=== PATIENT | male | born 1940 ===

== ENCOUNTER 2017-11-19 15:29 | Inpatient (IN) | payer MEDICARE, BC ==
[2017-11-19 16:59] LABS: #Lymphocytes 1.7 thou/uL (1.20-3.40); #Monocytes 0.8 thou/uL (0.11-0.59); #Neutrophils 6.1 thou/uL (1.40-6.50); %Basophils 0.4 % (0.0-1.0); %Eosinophils 0.1 % (0.0-10.0); %Lymphocytes 19.8 % (21.0-51.0); %Monocytes 9.3 % (0.0-10.0); %Neutrophils 70.5 % (42.0-75.0); Hemoglobin 9.5 g/dL (14.0-18.0); Mean Corpuscular HGB CONC 34.3 g/dL (32.0-36.0); Mean Corpuscular Hemoglobin 30.8 pg (27.0-31.0); Mean Corpuscular Volume 89.7 fl (80.0-94.0); Mean Platelet Volume 6.6 fL (7.4-10.4); Platelet Count 286 thou/uL (130-400); White Blood Cell (WBC) Count 8.7 thou/uL (4.8-10.8)
[2017-11-19 17:04] LABS: INR-International Normal Ratio 1.2; PTT 28.1 SEC (22.9-36.1); Prothrombin Time 15.4 SEC (12.0-14.7)
[2017-11-19 17:21] LABS: ALT (SGPT) 7 U/L (8-55); AST (SGOT) 12 U/L (5-34); Albumin 3.6 g/dL (3.4-4.8); Alkaline Phosphatase 50 U/L (40-150); Anion Gap 12 mmol/L (10-20); BUN (Urea Nitrogen) 44 mg/dL (8.4-25.7); Bilirubin, Total 0.4 mg/dL (0.2-1.2); Calc. Creatinine Clearance 0 mL/min (70-130); Carbon Dioxide 23 mmol/L (23-31); Chloride 105 mmol/L (98-107); Estimated GFR-MDRD 61; Globulin 3.1 g/dL (2.4-3.5); Glucose 158 mg/dL (83-110); Potassium 4.5 mmol/L (3.5-5.1); Protein, Total 6.7 g/dL (5.8-8.1); Sodium 135 mmol/L (136-145)
[2017-11-19 17:57] LABS: Bilirubin Negative (Negative); Blood, Urine Negative (Negative); Clarity CLEAR (Clear); Glucose, Urine (Dipstick) 100 mg/dL (Negative); Leukocyte Negative (Negative); Nitrite Negative (Negative); Protein, Urine (Dipstick) Negative (Neg-Trace); Specific Gravity, Urine 1.022 (1.002-1.036); Urobilinogen 0.2 mg/dL (0.2-1.0)
[2017-11-19] MEDS ORDERED: Pantoprazole 40 MG VIAL ONE (17:58)
[2017-11-19] MEDS ORDERED: Mag-Al 1200 mg/1200 mg/30 ML UDCUP PO PRN (22:51)
[2017-11-19] MEDS ORDERED: Calcium Carbonate 500 MG ChewTAB PO PRN (22:51)
[2017-11-19] MEDS ORDERED: Dextrose 50% Abboject 50 ML SYRINGE SLOW IVP PRN (22:51)
[2017-11-19] MEDS ORDERED: Dextrose 5% in Water 1,000 ML IV PRN (22:51)
[2017-11-19] MEDS ORDERED: Acetaminophen 650 MG Suppository PR PRN (22:51)
[2017-11-19] MEDS ORDERED: Acetaminophen 325 MG TAB PO PRN (22:51)
[2017-11-19] MEDS ORDERED: Insulin Regular 300 UNITS/3 ML VIAL SC PRN ×2 (22:51)
[2017-11-19 23:22] LABS: Hemoglobin 9.1 g/dL (14.0-18.0)
[2017-11-19] MEDS: Sodium Chloride 0.9% 1,000 ML IV SCH (23:40)
[2017-11-19] MEDS ORDERED: traMADol HCl 50 MG TAB PO PRN (23:50)
--- NOTE | 2017-11-20 01:28 | HP ---
DATE OF ADMISSION: 11/19/2017 The patient was seen and examined on 11/19/2017 PRIMARY CARE PHYSICIAN: Dr. Wiley at [place]. CHIEF COMPLAINT: Nausea, vomiting with dark stool of 1 day duration. HISTORY OF PRESENT ILLNESS: The patient is a 77-year-old male with diabetes mellitus, type 2; and Al zheimer dementia; presented to the emergency room at [place] with above complaints. The patient is a poor historian. The history obtained from the family at the bedside. Over the last 24 hours, the patient has on and off nausea, vomiting, and dark stool. His vomitus was somewhat dark as well. At this time, the patient appears comfortable and denies any abdominal disco mfort. No fever, chills, lightheadedness, dizziness, chest pain, syncope reported. The patient does not take any nonsteroidal anti-inflammatory drugs on the routine basis except for a low dose aspirin . He took one ibuprofen last week for headache. There is no history of EGD, colonoscopy or GI bleed ing in the past. PAST MEDICAL HISTORY: 1. Alzheimer's dementia. 2. Diabetes mellitus, type 2. 3. History of Hodgkin's lymphoma, completed chemotherapy in the past. PAST SURGICAL HISTORY: MediPort placement. ALLERGIES: The patient is allergic to PENICILLIN. CURRENT HOME MEDICATIONS: Aricept 10 mg at bedtime, Lexapro 20 mg at bedtime, levothyroxine 25 mcg d aily, metformin 500 mg twice a day, tramadol as needed. SOCIAL HISTORY: The patient currently lives at home with his spouse. Spouse is the DPOA. He is FUL L CODE. He has a history of heavy alcohol abuse in the remote past. No alcohol over the last 20 yea rs or so. He ambulates with the help of a walker. He also has a wheelchair. FAMILY HISTORY: Positive for diabetes. REVIEW OF SYSTEMS: Cannot be reliably obtained from the patient due to current cognitive status/charlie ntia. PHYSICAL EXAMINATION: VITAL SIGNS: In the emergency room showed temperature 97.8, respirations 20, pulse 98, blood pressur e 127/71 with O2 saturation of 100% on 1 liter nasal cannula. GENERAL: A 77-year-old male, in no apparent distress. HEENT: Head is atraumatic, normocephalic. Sclerae are anicteric. Moist mucous membranes. No oral lesion. NECK: Supple, no JVD appreciated. No carotid bruit. LUNGS: Clear to auscultation bilaterally, no wheezing, rales or rhonchi. HEART: S1, S2 present. Regular rate and rhythm. No murmur, rubs, or gallops appreciated. ABDOMEN: Soft, nontender, bowel sounds present, no rebound, guarding, no costovertebral angle tender ness. EXTREMITIES: No edema or calf tenderness. NEUROLOGIC: Grossly nonfocal, moves all four extremities. PSYCHIATRY: The patient is alert and awake. Poor historian. SKIN: Warm and dry. LYMPH NODES: No palpable lymph nodes in the neck. PERIPHERAL VASCULAR: Radial pulses palpable bilaterally. MUSCULOSKELETAL: No joint swelling or tenderness. LABORATORY FINDINGS: 1. CBC showed WBC 9.0 with hemoglobin 9.6. Repeat hemoglobin was 9.1. Platelet count 284. 2. INR 1.2 with PT 15.4. 3. Creatinine was 1.47 with BUN 58. 4. Magnesium 1.4. 5. Urinalysis was negative for wbc bacteria. 6. Stool for occult blood was positive. 7. Telemetry monitoring by my review showed sinus rhythm. IMPRESSION: 1. Gastrointestinal bleeding, suspected secondary to peptic ulcer disease. 2. Diabetes mellitus, type 2. 3. Alzheimer's dementia. 4. Acute kidney injury on chronic kidney disease, stage 2. 5. Hyponatremia, mild, with sodium 135. 6. Hypomagnesemia. 7. Anemia secondary to acute gastrointestinal blood loss. 8. PENICILLIN allergy. 9. History of Hodgkin's lymphoma in the past. 10. History of heavy alcohol abuse in the past. 11. Physical deconditioning. 12. Hypothyroidism. PLAN: The patient will be monitored on the telemetry unit as 23-hour observation. GI will be consul alvaro. We will check iron profile in a.m. We will resume all of his home medications except metformin . The patient will be kept n.p.o. IV fluids. GI consult. We will resume selected home medications . Fall precautions. Plan of care was discussed with the family in detail. They stated understanding.
[2017-11-20] MEDS: Pantoprazole 80 MG, Admixture Fee 1 EACH in Sodium Chloride 0.9% 100 ML IVP SCH (05:30)
[2017-11-20] MEDS: Sodium Chloride 0.9% 1,000 ML IV SCH ×4 (05:30→22:14)
[2017-11-20 05:54] LABS: Hemoglobin 8.4 g/dL (14.0-18.0); Platelet Count 255 thou/uL (130-400)
[2017-11-20 06:07] LABS: Anion Gap 12 mmol/L (10-20); BUN (Urea Nitrogen) 33 mg/dL (8.4-25.7); Calc. Creatinine Clearance 49 mL/min (70-130); Calcium 8.5 mg/dL (7.8-10.44); Carbon Dioxide 24 mmol/L (23-31); Chloride 108 mmol/L (98-107); Estimated GFR-MDRD 62; Glucose 135 mg/dL (83-110); Iron 93 ug/dL (65-175); Iron Binding Capacity, Total 260 mcg/dL (261-462); Magnesium 1.7 mg/dL (1.6-2.6); Potassium 4.4 mmol/L (3.5-5.1); Sodium 140 mmol/L (136-145)
[2017-11-20] MEDS: Levothyroxine Sodium 25 MCG TAB PO SCH (07:00)
[2017-11-20] MEDS ORDERED: Prevnar 13-Val Conj/PF 0.5 ML SYRINGE IM ONE (09:00)
[2017-11-20] MEDS ORDERED: Lidocaine 1% PF 5 ML VIAL ONE (09:42)
[2017-11-20] MEDS ORDERED: PROPOFOL 200 MG/20 ML VIAL ONE (09:42)
[2017-11-20 11:11] LABS: Hemoglobin 7.2 g/dL (14.0-18.0)
--- NOTE | 2017-11-20 13:18 | PDOC.PN ---
- Subjective Encounter Start Date: 11/20/17 Encounter Start Time: 13:15 Patient seen and examined for Anemia/GI bleeding. Had Melena earlier per RN. No new complaints. No overnight events - Objective MAR Reviewed: Yes Vital Signs & Weight: Vital Signs (12 hours) Temp Pulse Resp BP Pulse Ox 11/20/17 12:00 98.3 F 71 20 108/56 L 95 11/20/17 08:00 98.1 F 70 16 120/60 99 Result Diagrams: 11/20/17 10:52 11/20/17 05:37 Additional Labs: Accuchecks 11/20/17 11/20/17 12:14 08:03 POC Glucose 127 H 133 H EKG Reviewed by me: Yes (Tele SR) Phys Exam - Physical Examination Constitutional: NAD Neck: no JVD Respiratory: no wheezing, no rales, no rhonchi symmetrical Cardiovascular: RRR, no rub no heaves/pulsations Gastrointestinal: soft, non-tender, no distention, positive bowel sounds Musculoskeletal: no edema Neurological: non-focal, normal sensation, moves all 4 limbs Dx/Plan (1) GI bleed Code(s): K92.2 - GASTROINTESTINAL HEMORRHAGE, UNSPECIFIED Status: Acute (2) Anemia associated with acute blood loss Code(s): D62 - ACUTE POSTHEMORRHAGIC ANEMIA Status: Acute (3) DM2 (diabetes mellitus, type 2) Status: Chronic Qualifiers: Chronic kidney disease stage: stage 2 (mild) (4) MARY (acute kidney injury) Code(s): N17.9 - ACUTE KIDNEY FAILURE, UNSPECIFIED Status: Acute (5) Other chronic problems Status: Chronic Comment: - Alzheimer's dementia. - Hyponatremia, mild, with sodium 135. - Hypomagnesemia. - PENICILLIN allergy. - History of Hodgkin's lymphoma in the past. - History of heavy alcohol abuse in the past. - Physical deconditioning. - Hypothyroidism. - Plan DVT proph w/SCDs Transfuse 1 unit PRBC, HH at 1800 -: EGD today -: Reduce IVF to 125 ml/hr -: Cont current meds as below Review of Systems - Review of Systems Respiratory: negative: Cough, Dry, Shortness of Breath, Hemoptysis, SOB with Excertion, Pleuritic Pain, Sputum, Wheezing Cardiovascular: negative: chest pain, palpitations, orthopnea, paroxysmal nocturnal dyspnea, edema, light headedness, other Gastrointestinal: negative: Nausea, Vomiting, Abdominal Pain, Diarrhea, Constipation, Melena, Hematochezia, Other - Medications/Allergies Allergies/Adverse Reactions: Allergies Allergy/AdvReac Type Severity Reaction Status Date / Time Penicillins Allergy Verified 11/20/17 02:18 Medications: Current Medications Acetaminophen (Tylenol) 650 mg PO Q4H PRN PRN Reason: Headache/Fever or Pain Acetaminophen (Tylenol) 650 mg UT Q4H PRN PRN Reason: Headache/Fever or Pain Al Hydroxide/Mg Hydroxide (Maalox) 30 ml PO Q6H PRN PRN Reason: Heartburn or Indigestion Calcium Carbonate (Tums) 1,000 mg PO Q4H PRN PRN Reason: Heartburn or Indigestion Dextrose/Water (Dextrose 50%) 25 gm SLOW IVP PRN PRN PRN Reason: Hypoglycemia Donepezil HCl (Aricept) 10 mg PO HS BERNARDA Escitalopram Oxalate (Lexapro) 20 mg PO HS BERNARDA Glucagon (Glucagon) 1 mg IM PRN PRN PRN Reason: Hypoglycemia Pantoprazole Sodium 80 mg/Miscellaneous Medication 1 each/ Sodium Chloride 100 mls @ 10 mls/hr IVP INF [facility] Last Admin: 11/20/17 05:30 Dose: 100 mls Sodium Chloride (Normal Saline 0.9%) 1,000 mls @ 150 mls/hr IV .Q6H40M [facility] Last Admin: 11/20/17 11:09 Dose: Not Given Dextrose/Water (D5w) 1,000 mls @ 0 mls/hr IV .Q0M PRN; As Directed PRN Reason: Hypoglycemia Insulin Human Regular (Humulin R) 0 units SC .MILD SLIDING SCALE PRN PRN Reason: Mild Correctional Scale Insulin Human Regular (Humulin R) 0 units SC .BEDTIME SLIDING SC PRN PRN Reason: Bedtime Correctional Scale Levothyroxine Sodium (Synthroid) 25 mcg PO 0600 [facility] Last Admin: 11/20/17 07:00 Dose: Not Given Sodium Chloride (Flush - Normal Saline) 10 ml IVF Q12HR [facility] Last Admin: 11/20/17 11:02 Dose: 10 ml Sodium Chloride (Flush - Normal Saline) 10 ml IVF PRN PRN PRN Reason: Saline Flush Tramadol HCl (Ultram) 50 mg PO TID PRN PRN Reason: Pain
--- NOTE | 2017-11-20 18:18 | OP ---
DATE OF PROCEDURE: 11/20/2017 OPERATIVE PROCEDURE: Esophagogastroduodenoscopy with biopsy. PREOPERATIVE DIAGNOSES: Nausea and vomiting, black tarry stool and no history of coffee-ground vomit ing. POSTOPERATIVE DIAGNOSES: 1. Large hiatus hernia. 2. Ulcer in the gastroesophageal junction with esophagitis. 3. Ulceration of this area was biopsied. 4. Ulcer in the incisural angularis, nonbleeding. 5. Large and deep ulceration in the duodenal bulb without any active bleeding. 6. Duodenitis. PROCEDURE NOTE: The patient was placed on his left lateral position after [facility] A Pentax video gastroscope under direct vision was passed down the oropharynx to the GE junction, into the stomach and subsequently into descending duodenum. At the time of endosco py, stomach was completely free of any blood or any coffee-ground material. The patient had ulcerati on with some varices over this area, over the mid esophagus, this was biopsied. At the GE junction, the patient had another ulceration with esophagitis. He has a large hiatal hernia. The fundus and c ardia, no pathology. The gastric body, no pathology. The gastric antral had an ulceration over the incisura. It was nonbleeding. The duodenal bulb showed a very large and deep ulceration. I do not see any visible vessel or bleeding. The mucosa also was edematous and erythematous indicative of duo denitis. The descending duodenum, no pathology. Biopsies obtained of the gastric antrum and gastric body. The stomach was decompressed and the scope removed. RECOMMENDATIONS: 1. Continue PPI. 2. Diet as tolerated. 3. Follow up H and H. I would also recommend not to give any aspirin or any NSAID medication.
[2017-11-20 18:27] LABS: Hemoglobin 8.9 g/dL (14.0-18.0)
[2017-11-20] MEDS: Donepezil HCl 10 MG TAB PO SCH (22:11)
[2017-11-20] MEDS: Escitalopram Oxalate 20 mg Tablet PO SCH (22:12)
--- NOTE | 2017-11-21 02:04 | CON ---
DATE OF CONSULTATION: 11/20/2017 REFERRING PHYSICIAN: Santosh Salinas MD REASON FOR CONSULTATION: 1. Nausea and vomiting, and vomiting coffee-ground material. 2. Also has black tarry stool. HISTORY OF PRESENT ILLNESS: Mr. Yao Arevalo is a 77-year-old Latin-Pry[place]in[place] male whose regular [facility] doctor is Dr. Wiley in [place]. He also sees his clinical business manager and an oncologist in [facility]. The patient has history of Hodgkin's lymphoma, status post liver chemotherapy and has been in remission for the last five years. He does see Dr. Jj at [place] every 6 months. The pa silvina has history of Alzheimer dementia and diabetes mellitus. The history was basically obtained fr om talking to the patient's . Since admission to the hospital, the patient has had no nausea or vomiting. The patient denies abdominal pain. He is awake, alert, and communicative, but most of the history was obtained by talking to the patient's . He denies any vomiting today, but he says he vomited the other day. The patient has no heartburn, indigestion. No dysphagia. His tells me he had EGD done several years ago, but really does not know exactly what was found. The patient's b owel movements are fairly regular. There is no prior history of any hematochezia or any melena. No prior history of any . He does not take any aspirin except for low-dose aspirin once a day. H e does not take NSAID medication or blood thinners. No relevant history. ALLERGIES: PENICILLIN. SOCIAL HISTORY: The patient is . He has history of alcohol abuse in the past and also has hi story of smoking in the past. He has quit smoking more than 20 years ago. He walks with a walker. MEDICAL ILLNESSES: 1. Alzheimer dementia. 2. Type 2 diabetes. 3. History of Hodgkin's lymphoma, status post chemotherapy, in remission. FAMILY HISTORY: Diabetes mellitus. REVIEW OF SYSTEMS: Unremarkable. Anyway, he is not a good historian and he denies any chest pain, d ifficulty breathing, abdominal pain, palpitations. PHYSICAL EXAMINATION: GENERAL: He appears very comfortable. He is awake and communicative, but he is not a good historian . VITAL SIGNS: His pulse is 90, blood pressure is 120/80. HEENT: Conjunctivae clear. NECK: Supple. No adenitis or thyromegaly noted. CARDIOVASCULAR: First and second heart sounds normal. LUNGS: Clear to auscultation. ABDOMEN: Soft to palpate. Abdomen is nondistended. Abdomen is nontender. There is no organomegaly or masses. Bowel sounds normal. EXTREMITIES: No edema. Symptoms are grossly within normal limits. LABORATORY DATA: WBC 9000, hemoglobin 9.6, hematocrit 27.8. He has had serial H&H since admission. It was drifting slowly to 9.1 to 8.4 to 7.2 today. Hematocrit 20.9 today. MCV 10.7, platelet count is 286,000, polymorphs 70, lymphocytes 19. Serum chemistries, sodium 135, potassium 4.5, chloride 1 05, bicarbonate 23, BUN is 44, creatinine 1.17, glucose 158, calcium 9, bilirubin 0.4, AST 12, ALT 7, alkaline phosphatase 50. CLINICAL IMPRESSION: 1. A 77-year-old Latin-Prydeinig male with nausea, vomiting, and history of vomiting coffee-ground ma terial and having black tarry stool. The patient has no abdominal pain. No nausea or vomiting. No prior history of ulcer disease. 2. Anemia due to blood loss. 3. Elevated BUN and creatinine mostly represent upper gastrointestinal bleeding with reabsorption of blood with BUN going up. 4. Alzheimer dementia. 5. Diabetes mellitus. 6. History of Hodgkin's lymphoma, in remission. PLAN: 1. Transfuse. 2. IV PPI. 3. EGD later on today. I will make further recommendations after EGD.
[2017-11-21] MEDS: Sodium Chloride 0.9% 1,000 ML IV SCH ×3 (05:18→16:47)
[2017-11-21] MEDS: Levothyroxine Sodium 25 MCG TAB PO SCH (05:18)
[2017-11-21 08:16] VITALS: BMI 23.4
[2017-11-21 09:06] LABS: #Eosinphils 0.1 thou/uL (0.0-0.7); #Lymphocytes 1.5 thou/uL (1.20-3.40); #Monocytes 0.5 thou/uL (0.11-0.59); #Neutrophils 3.1 thou/uL (1.40-6.50); %Basophils 0.9 % (0.0-1.0); %Monocytes 10.4 % (0.0-10.0); %Neutrophils 58.7 % (42.0-75.0); Mean Corpuscular HGB CONC 34.4 g/dL (32.0-36.0); Mean Corpuscular Hemoglobin 31.3 pg (27.0-31.0); Mean Platelet Volume 6.8 fL (7.4-10.4); Platelet Count 194 thou/uL (130-400); RBC Distribution Width 11.9 % (11.5-14.5); Red Blood Cell (RBC) Count 2.55 mill/uL (4.70-6.10); White Blood Cell (WBC) Count 5.2 thou/uL (4.8-10.8)
[2017-11-21 09:22] LABS: Anion Gap 9 mmol/L (10-20); BUN (Urea Nitrogen) 13 mg/dL (8.4-25.7); Calc. Creatinine Clearance 58 mL/min (70-130); Calcium 7.7 mg/dL (7.8-10.44); Carbon Dioxide 22 mmol/L (23-31); Chloride 111 mmol/L (98-107); Estimated GFR-MDRD 74; Glucose 123 mg/dL (83-110); Potassium 3.9 mmol/L (3.5-5.1); Sodium 138 mmol/L (136-145)
[2017-11-21] MEDS: Pantoprazole 80 MG, Admixture Fee 1 EACH in Sodium Chloride 0.9% 100 ML IVP SCH ×2 (10:02→18:28)
--- NOTE | 2017-11-21 10:47 | PDOC.PN ---
- Subjective Encounter Start Date: 11/21/17 Encounter Start Time: 07:45 -: old records requested/rev Patient seen and examined for gi bleed. No new complaints. No overnight events pt feels weak, no more bleeding but has no BM - Objective MAR Reviewed: Yes Vital Signs & Weight: Vital Signs (12 hours) Temp Pulse Resp BP BP Pulse Ox 11/21/17 05:00 140/60 11/21/17 04:35 98.2 F 57 L 17 122/57 L 98 Weight Admit Weight 140 lb 3.2 oz Weight 140 lb 11.2 oz Most Recent Monitor Data Heart Rate from ECG 63 NIBP 111/58 I&O: 11/20/17 11/21/17 11/22/17 06:59 06:59 06:59 Intake Total 1862 Output Total 200 Balance 1662 Result Diagrams: 11/21/17 08:40 11/21/17 08:40 Additional Labs: Accuchecks 11/21/17 11/21/17 11/21/17 08:02 06:54 00:48 POC Glucose 133 H 115 H 119 H 11/20/17 11/20/17 16:45 12:14 POC Glucose 122 H 127 H EKG Reviewed by me: Yes (nsr) Phys Exam - Physical Examination Constitutional: NAD HEENT: PERRLA, moist MMs, sclera anicteric Neck: no JVD, supple Respiratory: no wheezing, no rales, no rhonchi Cardiovascular: RRR, no significant murmur, no rub Gastrointestinal: soft, non-tender, no distention, positive bowel sounds Musculoskeletal: no edema, pulses present Neurological: non-focal, normal sensation, moves all 4 limbs Lymphatic: no nodes Psychiatric: normal affect, A&O x 3 Skin: no rash, normal turgor Dx/Plan (1) MARY (acute kidney injury) Code(s): N17.9 - ACUTE KIDNEY FAILURE, UNSPECIFIED Status: Resolved (2) Anemia associated with acute blood loss Code(s): D62 - ACUTE POSTHEMORRHAGIC ANEMIA Status: Acute (3) Duodenitis Code(s): K29.80 - DUODENITIS WITHOUT BLEEDING Status: Acute (4) Esophagitis, erosive Code(s): K22.10 - ULCER OF ESOPHAGUS WITHOUT BLEEDING Status: Acute (5) GI bleed Code(s): K92.2 - GASTROINTESTINAL HEMORRHAGE, UNSPECIFIED Status: Acute (6) Large hiatal hernia Code(s): K44.9 - DIAPHRAGMATIC HERNIA WITHOUT OBSTRUCTION OR GANGRENE Status: Acute (7) Ulcer of gastroesophageal junction Code(s): K25.9 - GASTRIC ULCER, UNSP ACUTE OR CHRONIC, W/O HEMOR OR PERF Status: Acute (8) Alzheimer's dementia Code(s): G30.9 - ALZHEIMER'S DISEASE, UNSPECIFIED; F02.80 - DEMENTIA IN OTH DISEASES CLASSD ELSWHR W/O BEHAVRL DISTURB Status: Chronic (9) DM2 (diabetes mellitus, type 2) Status: Chronic Qualifiers: Chronic kidney disease stage: stage 2 (mild) (10) H/O Hodgkin's lymphoma Code(s): Z85.71 - PERSONAL HISTORY OF HODGKIN LYMPHOMA Status: Chronic (11) Hypothyroidism Code(s): E03.9 - HYPOTHYROIDISM, UNSPECIFIED Status: Chronic (12) Physical deconditioning Code(s): R53.81 - OTHER MALAISE Status: Chronic - Plan cont current plan of care, plan discussed w/ family, PT/OT * H & H stable * advance diet today * DC tele * transfer to medical * start PT * repeat labs tomorrow * discussed with GI * expecting discharge tomorrow * medication reviewed as below * symptomatic treatment * evaluate for SNU based on PT * discussed with daughter bedside. Review of Systems - Review of Systems Constitutional: weakness, malaise. negative: fever, chills, sweats, other Eyes: negative: Pain, Vision Change, Conjunctivae Inflammation, Eyelid Inflammation, Redness, Other ENT: negative: Ear Pain, Ear Discharge, Nose Pain, Nose Discharge, Nose Congestion, Mouth Pain, Mouth Swelling, Throat Pain, Throat Swelling, Other Respiratory: negative: Cough, Dry, Shortness of Breath, Hemoptysis, SOB with Excertion, Pleuritic Pain, Sputum, Wheezing Cardiovascular: negative: chest pain, palpitations, orthopnea, paroxysmal nocturnal dyspnea, edema, light headedness, other Gastrointestinal: negative: Nausea, Vomiting, Abdominal Pain, Diarrhea, Constipation, Melena, Hematochezia, Other Genitourinary: negative: Dysuria, Frequency, Incontinence, Hematuria, Retention , Other Musculoskeletal: negative: Neck Pain, Shoulder Pain, Arm Pain, Back Pain, Hand Pain, Leg Pain, Foot Pain, Other Skin: negative: Rash, Lesions, Josef, Bruising, Other - Medications/Allergies Allergies/Adverse Reactions: Allergies Allergy/AdvReac Type Severity Reaction Status Date / Time Penicillins Allergy Verified 11/20/17 02:18 Medications: Current Medications Acetaminophen (Tylenol) 650 mg PO Q4H PRN PRN Reason: Headache/Fever or Pain Acetaminophen (Tylenol) 650 mg [place] Q4H PRN PRN Reason: Headache/Fever or Pain Al Hydroxide/Mg Hydroxide (Maalox) 30 ml PO Q6H PRN PRN Reason: Heartburn or Indigestion Calcium Carbonate (Tums) 1,000 mg PO Q4H PRN PRN Reason: Heartburn or Indigestion Dextrose/Water (Dextrose 50%) 25 gm SLOW IVP PRN PRN PRN Reason: Hypoglycemia Donepezil HCl (Aricept) 10 mg PO [facility] Last Admin: 11/20/17 22:11 Dose: 10 mg Escitalopram Oxalate (Lexapro) 20 mg PO [facility] Last Admin: 11/20/17 22:12 Dose: 20 mg Glucagon (Glucagon) 1 mg IM PRN PRN PRN Reason: Hypoglycemia Pantoprazole Sodium 80 mg/Miscellaneous Medication 1 each/ Sodium Chloride 100 mls @ 10 mls/hr IVP INF [facility] Last Admin: 11/21/17 10:02 Dose: 100 mls Dextrose/Water (D5w) 1,000 mls @ 0 mls/hr IV .Q0M PRN; As Directed PRN Reason: Hypoglycemia Sodium Chloride (Normal Saline 0.9%) 1,000 mls @ 70 mls/hr IV .[id number] [facility] Last Admin: 11/21/17 10:01 Dose: Not Given Insulin Human Regular (Humulin R) 0 units SC .MILD SLIDING SCALE PRN PRN Reason: Mild Correctional Scale Insulin Human Regular (Humulin R) 0 units SC .BEDTIME SLIDING SC PRN PRN Reason: Bedtime Correctional Scale Levothyroxine Sodium (Synthroid) 25 mcg PO 0600 [facility] Last Admin: 11/21/17 05:18 Dose: 25 mcg Sodium Chloride (Flush - Normal Saline) 10 ml IVF Q12HR [facility] Last Admin: 11/21/17 10:00 Dose: 10 ml Sodium Chloride (Flush - Normal Saline) 10 ml IVF PRN PRN PRN Reason: Saline Flush Tramadol HCl (Ultram) 50 mg PO TID PRN PRN Reason: Pain
--- NOTE | 2017-11-21 15:48 | PRG ---
DATE OF SERVICE: 11/21/2017 SUBJECTIVE: This is a 77-year-old Latin-[place] male hospitalized with anemia, history of black tar ry stool and vomiting coffee-ground material. Anemia on admission. Blood count did drop down to 7.2 and he got 2 units of blood. He had an EGD yesterday. The EGD showed a gastric ulcer, also in the duodenal bulb, esophageal stricture. No active bleeding seen. Through the night, he has had no naus ea or vomiting. He has had no stool. He appears comfortable. Last H&H at 6:00 p.m. yesterday 8.9, hematocrit 26.3. Today, it dropped to 8 and 23.2. OBJECTIVE: GENERAL: Appears comfortable, afebrile. Pulse is 64, blood pressure is 117/59. CARDIOVASCULAR: First and second heart sounds normal. LUNGS: Clear to auscultation. ABDOMEN: Soft to palpate. No organomegaly. No tenderness. No masses. RECOMMENDATIONS: 1. Advance diet to diabetic diet. 2. Follow up H&H. 3. Continue proton-pump inhibitor.
[2017-11-21] MEDS: Escitalopram Oxalate 20 mg Tablet PO SCH (21:42)
[2017-11-21] MEDS: Donepezil HCl 10 MG TAB PO SCH (21:42)
[2017-11-22] MEDS: Sodium Chloride 0.9% 1,000 ML IV SCH ×2 (00:35→11:17)
[2017-11-22] MEDS: Levothyroxine Sodium 25 MCG TAB PO SCH (05:18)
[2017-11-22] MEDS: Pantoprazole 80 MG, Admixture Fee 1 EACH in Sodium Chloride 0.9% 100 ML IVP SCH (05:59)
[2017-11-22 11:05] LABS: Hemoglobin 7.6 g/dL (14.0-18.0)
--- NOTE | 2017-11-22 16:51 | PRG ---
DATE OF SERVICE: 11/22/2017 GI INPATIENT DAILY PROGRESS NOTE SUBJECTIVE: Mr. Arevalo is feeling well today. He denies any abdominal pain, nausea, or vomiting. He says he had a normal appearing bowel movement earlier today. He is tolerating his diabetic diet. His hemoglobin did decline further down to 7.6 this morning from a post-transfusion value of 8.9 two days ago. BUN is only 13, down from 44. He is receiving 2 more units of blood. PHYSICAL EXAMINATION: VITAL SIGNS: Temperature 98.3, pulse 55, blood pressure 129/71, 98% oxygen saturation on room air. GENERAL: No acute distress. HEART: Regular rate and rhythm. LUNGS: Clear to auscultation bilaterally. ABDOMEN: Soft and nontender to palpation. EXTREMITIES: No peripheral edema. LABORATORY STUDIES: Sodium 138, potassium 3.9, BUN 13, creatinine 0.98, glucose 183, INR 1.2, hemogl obin 7.6, hematocrit 21.7, WBC 5.2, platelets 194. ASSESSMENT AND PLAN: 1. Gastric ulcer. 2. Duodenal ulcer. 3. Ulcer at the gastroesophageal junction. 4. Acute blood loss anemia. There has been no further overt evidence of bleeding. He has remained hemodynamically stable and marcus enic stool seemed to have resolved. Would keep him on his IV PPI for a total of 72 hours, then this can be transitioned to oral PPI twice daily moving forward. Awaiting results of gastric biopsies.
[2017-11-22] MEDS: Pantoprazole 40 MG VIAL IVP SCH (20:10)
[2017-11-22] MEDS: Donepezil HCl 10 MG TAB PO SCH (20:10)
[2017-11-22] MEDS: Escitalopram Oxalate 20 mg Tablet PO SCH (20:10)
--- NOTE | 2017-11-22 23:47 | PDOC.PN ---
- Subjective Encounter Start Date: 11/22/17 Encounter Start Time: 14:00 Patient seen and examined for GI bleeding. No new complaints. No new melena. No CP/SOB. No overnight events - Objective MAR Reviewed: Yes Vital Signs & Weight: Vital Signs (12 hours) Temp Pulse Resp BP Pulse Ox 11/22/17 21:27 99.1 F 51 L 16 148/73 H 98 Weight Admit Weight 140 lb 3.2 oz Weight 140 lb 11.2 oz Most Recent Monitor Data Heart Rate from ECG 63 NIBP 111/58 I&O: 11/21/17 11/22/17 11/23/17 06:59 06:59 06:59 Intake Total 1862 1260 6100 Output Total 200 300 Balance 9138 808 3904 Result Diagrams: 11/23/17 04:07 11/21/17 08:40 Additional Labs: Accuchecks 11/22/17 11/22/17 11/22/17 21:27 16:58 12:01 POC Glucose 154 H 145 H 183 H 11/22/17 04:52 POC Glucose 122 H Phys Exam - Physical Examination Constitutional: NAD Respiratory: no wheezing, no rhonchi Cardiovascular: RRR, no rub Gastrointestinal: soft, non-tender, positive bowel sounds Musculoskeletal: no edema Neurological: moves all 4 limbs Dx/Plan (1) GI bleed Code(s): K92.2 - GASTROINTESTINAL HEMORRHAGE, UNSPECIFIED Status: Acute Comment: s/p EGD (2) Anemia associated with acute blood loss Code(s): D62 - ACUTE POSTHEMORRHAGIC ANEMIA Status: Acute (3) DM2 (diabetes mellitus, type 2) Status: Chronic Qualifiers: Chronic kidney disease stage: stage 2 (mild) (4) MARY (acute kidney injury) Code(s): N17.9 - ACUTE KIDNEY FAILURE, UNSPECIFIED Status: Resolved (5) Other chronic problems Status: Chronic Comment: - Alzheimer's dementia. - Hyponatremia, mild, with sodium 135. - Hypomagnesemia. - PENICILLIN allergy. - History of Hodgkin's lymphoma in the past. - History of heavy alcohol abuse in the past. - Physical deconditioning. - Hypothyroidism. - Plan DVT proph w/SCDs Transfuse 1 unit PRBC -: HH in AM -: Cont IV PPI -: Cont current meds as below Review of Systems - Review of Systems Respiratory: negative: Cough, Dry, Shortness of Breath, Hemoptysis, SOB with Excertion, Pleuritic Pain, Sputum, Wheezing Cardiovascular: negative: chest pain, palpitations, orthopnea, paroxysmal nocturnal dyspnea, edema, light headedness, other - Medications/Allergies Allergies/Adverse Reactions: Allergies Allergy/AdvReac Type Severity Reaction Status Date / Time Penicillins Allergy Verified 11/20/17 02:18 Medications: Current Medications Acetaminophen (Tylenol) 650 mg PO Q4H PRN PRN Reason: Headache/Fever or Pain Acetaminophen (Tylenol) 650 mg [place] Q4H PRN PRN Reason: Headache/Fever or Pain Al Hydroxide/Mg Hydroxide (Maalox) 30 ml PO Q6H PRN PRN Reason: Heartburn or Indigestion Calcium Carbonate (Tums) 1,000 mg PO Q4H PRN PRN Reason: Heartburn or Indigestion Dextrose/Water (Dextrose 50%) 25 gm SLOW IVP PRN PRN PRN Reason: Hypoglycemia Donepezil HCl (Aricept) 10 mg PO HS [facility] Last Admin: 11/22/17 20:10 Dose: 10 mg Escitalopram Oxalate (Lexapro) 20 mg PO HS [facility] Last Admin: 11/22/17 20:10 Dose: 20 mg Glucagon (Glucagon) 1 mg IM PRN PRN PRN Reason: Hypoglycemia Dextrose/Water (D5w) 1,000 mls @ 0 mls/hr IV .Q0M PRN; As Directed PRN Reason: Hypoglycemia Insulin Human Regular (Humulin R) 0 units SC .MILD SLIDING SCALE PRN PRN Reason: Mild Correctional Scale Insulin Human Regular (Humulin R) 0 units SC .BEDTIME SLIDING SC PRN PRN Reason: Bedtime Correctional Scale Levothyroxine Sodium (Synthroid) 25 mcg PO 0600 [facility] Last Admin: 11/22/17 05:18 Dose: 25 mcg Pantoprazole Sodium (Protonix) 40 mg IVP BID [facility] Last Admin: 11/22/17 20:10 Dose: 40 mg Sodium Chloride (Flush - Normal Saline) 10 ml IVF Q12HR [facility] Last Admin: 11/22/17 20:10 Dose: 10 ml Sodium Chloride (Flush - Normal Saline) 10 ml FS BID [facility] Last Admin: 11/22/17 20:10 Dose: 10 ml Tramadol HCl (Ultram) 50 mg PO TID PRN PRN Reason: Pain
[2017-11-23 04:30] LABS: Hemoglobin 9.5 g/dL (14.0-18.0); Platelet Count 188 thou/uL (130-400)
[2017-11-23] MEDS: Levothyroxine Sodium 25 MCG TAB PO SCH (06:02)
[2017-11-23] MEDS: Pantoprazole 40 MG VIAL IVP SCH ×2 (08:57→21:11)
--- NOTE | 2017-11-23 13:56 | PRG ---
DATE OF SERVICE: 11/23/2017 SUBJECTIVE: Mr. Arevalo is feeling well. No abdominal pain or nausea. He is tolerating his diet. He says he had a bowel movement last night with no melena or hematochezia. Hemoglobin came up to 9.5 this morning after 1 unit RBC transfusion yesterday. PHYSICAL EXAMINATION: VITAL SIGNS: Temperature 98.7, pulse 51, blood pressure 114/64, 98% oxygen saturation on room air. GENERAL: No acute distress. HEART: Regular rate and rhythm. LUNGS: Clear to auscultation bilaterally. ABDOMEN: Soft and nontender to palpation. EXTREMITIES: No peripheral edema. LABORATORY STUDIES: Hemoglobin 9.5, hematocrit 26.9, platelets 188. Glucose is 142. ASSESSMENT: 1. Gastric ulcer. 2. Duodenal ulcer. 3. Ulcer at the gastroesophageal junction. 4. Acute blood loss anemia. PLAN: Still no further overt evidence of bleeding. He remains hemodynamically stable and melena see ms to have resolved. I think tomorrow he can be transitioned to oral PPI twice daily. 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 Paulo minaya, in the meantime. Gastric biopsies are still pending, but those can be followed up after hospital discharge.
[2017-11-23] MEDS: Escitalopram Oxalate 20 mg Tablet PO SCH (21:11)
[2017-11-23] MEDS: Donepezil HCl 10 MG TAB PO SCH (21:11)
--- NOTE | 2017-11-23 22:01 | PDOC.PN ---
- Subjective Encounter Start Date: 11/23/17 Encounter Start Time: 14:00 Patient seen and examined for GI bleeding. No new complaints. No new Melena. No overnight events - Objective MAR Reviewed: Yes Vital Signs & Weight: Vital Signs (12 hours) Temp Pulse Resp BP Pulse Ox 11/23/17 21:35 99.2 F 50 L 18 142/74 H 98 Weight Admit Weight 140 lb 3.2 oz Weight 140 lb 11.2 oz Most Recent Monitor Data Heart Rate from ECG 63 NIBP 111/58 I&O: 11/22/17 11/23/17 11/24/17 06:59 06:59 06:59 Intake Total 1260 6600 Output Total 300 400 Balance 960 6200 Result Diagrams: 11/24/17 05:26 11/24/17 05:26 Additional Labs: Accuchecks 11/23/17 11/23/17 11/23/17 17:08 11:08 06:18 POC Glucose 139 H 142 H 133 H Phys Exam - Physical Examination Constitutional: NAD Respiratory: no wheezing, no rhonchi Cardiovascular: RRR, no rub Gastrointestinal: soft, non-tender, no distention, positive bowel sounds Musculoskeletal: no edema Neurological: moves all 4 limbs Dx/Plan (1) GI bleed Code(s): K92.2 - GASTROINTESTINAL HEMORRHAGE, UNSPECIFIED Status: Acute Comment: s/p EGD (2) Anemia associated with acute blood loss Code(s): D62 - ACUTE POSTHEMORRHAGIC ANEMIA Status: Acute (3) DM2 (diabetes mellitus, type 2) Status: Chronic Qualifiers: Chronic kidney disease stage: stage 2 (mild) (4) MARY (acute kidney injury) Code(s): N17.9 - ACUTE KIDNEY FAILURE, UNSPECIFIED Status: Resolved (5) Other chronic problems Status: Chronic Comment: - Alzheimer's dementia. - Hyponatremia, mild, with sodium 135. - Hypomagnesemia. - PENICILLIN allergy. - History of Hodgkin's lymphoma in the past. - History of heavy alcohol abuse in the past. - Physical deconditioning. - Hypothyroidism. - Plan DVT proph w/SCDs Cont IV PPI per GI -: HH in AM -: DC in AM if HH stable -: Cont current meds as below Review of Systems - Review of Systems Respiratory: negative: Cough, Dry, Shortness of Breath, Hemoptysis, SOB with Excertion, Pleuritic Pain, Sputum, Wheezing Cardiovascular: negative: chest pain, palpitations, orthopnea, paroxysmal nocturnal dyspnea, edema, light headedness, other - Medications/Allergies Allergies/Adverse Reactions: Allergies Allergy/AdvReac Type Severity Reaction Status Date / Time Penicillins Allergy Verified 11/20/17 02:18 Medications: Current Medications Acetaminophen (Tylenol) 650 mg PO Q4H PRN PRN Reason: Headache/Fever or Pain Acetaminophen (Tylenol) 650 mg [place] Q4H PRN PRN Reason: Headache/Fever or Pain Al Hydroxide/Mg Hydroxide (Maalox) 30 ml PO Q6H PRN PRN Reason: Heartburn or Indigestion Calcium Carbonate (Tums) 1,000 mg PO Q4H PRN PRN Reason: Heartburn or Indigestion Dextrose/Water (Dextrose 50%) 25 gm SLOW IVP PRN PRN PRN Reason: Hypoglycemia Donepezil HCl (Aricept) 10 mg PO HS [facility] Last Admin: 11/23/17 21:11 Dose: 10 mg Escitalopram Oxalate (Lexapro) 20 mg PO [facility] Last Admin: 11/23/17 21:11 Dose: 20 mg Glucagon (Glucagon) 1 mg IM PRN PRN PRN Reason: Hypoglycemia Dextrose/Water (D5w) 1,000 mls @ 0 mls/hr IV .Q0M PRN; As Directed PRN Reason: Hypoglycemia Insulin Human Regular (Humulin R) 0 units SC .MILD SLIDING SCALE PRN PRN Reason: Mild Correctional Scale Insulin Human Regular (Humulin R) 0 units SC .BEDTIME SLIDING SC PRN PRN Reason: Bedtime Correctional Scale Levothyroxine Sodium (Synthroid) 25 mcg PO 0600 [facility] Last Admin: 11/23/17 06:02 Dose: 25 mcg Pantoprazole Sodium (Protonix) 40 mg IVP BID [facility] Last Admin: 11/23/17 21:11 Dose: 40 mg Sodium Chloride (Flush - Normal Saline) 10 ml IVF Q12HR [facility] Last Admin: 11/23/17 21:11 Dose: 10 ml Sodium Chloride (Flush - Normal Saline) 10 ml FS BID [facility] Last Admin: 11/23/17 21:11 Dose: 10 ml Tramadol HCl (Ultram) 50 mg PO TID PRN PRN Reason: Pain
[2017-11-24] MEDS: Levothyroxine Sodium 25 MCG TAB PO SCH (05:38)
[2017-11-24 05:57] LABS: Hemoglobin 9.6 g/dL (14.0-18.0); Platelet Count 207 thou/uL (130-400)
[2017-11-24 06:11] LABS: Anion Gap 6 mmol/L (10-20); BUN (Urea Nitrogen) 6 mg/dL (8.4-25.7); Calc. Creatinine Clearance 48 mL/min (70-130); Carbon Dioxide 26 mmol/L (23-31); Chloride 106 mmol/L (98-107); Estimated GFR-MDRD 59; Glucose 119 mg/dL (83-110); Magnesium 1.5 mg/dL (1.6-2.6); Sodium 135 mmol/L (136-145)
[2017-11-24] MEDS ORDERED: Potassium Chloride 20 MEQ/100 ML PREMIX BAG IVPB SCH (07:15)
[2017-11-24] MEDS ORDERED: Magnesium 2 GM/NS 0.9% 100 ML 2 GM in Premix Bag 1 BAG IVPB SCH (07:30)
[2017-11-24] MEDS ORDERED: Potassium Chloride 20 MEQ in Premix Bag 1 BAG IVPB SCH (07:30)
[2017-11-24] MEDS: Pantoprazole 40 MG VIAL IVP SCH (08:01)
[2017-11-24 11:38] VITALS: BP 129/77; TEMP 98.6
--- NOTE | 2017-11-25 11:24 | DIS ---
DATE OF DISCHARGE: 11/24/2017 DISCHARGE DISPOSITION: Home. FOLLOWUP: 1. Follow up with primary care physician, Dr. Silas Wiley in one week. 2. Follow up with Dr. Hedrick in one week. INPATIENT CONSULTANTS: Gastroenterology, Dr. Hedrick. The patient was seen and examined on the day of discharge. Denies any new complaints. No chest pain , shortness of breath, palpitations. BRIEF HOSPITAL COURSE: The patient is a 77-year-old male with Alzheimer's dementia; Hodgkin's lympho ma; and diabetes mellitus, type 2; presented to the hospital with nausea and vomiting with dark stool of 1 day duration. Please refer to the history and physical dated 11/19/2017 for further details. The patient was admitted to the hospital with a diagnosis of GI bleeding, suspected secondary to pept ic ulcer disease. He was started on Protonix drip. His H&H on admission was 9.5, which dropped to 7 .2. He required total of 2 units of PRBC this admission. An EGD was performed on 11/20/2017 that sh owed a large and deep ulceration in the duodenal bulb without any active bleeding. He also had ulcer at the GE junction with esophagitis with large hiatal hernia and duodenitis. The patient will kylie nue proton pump inhibitors twice a day at least for the next 2 months. He will follow up with Dr. Ra lassiter. Gastric biopsies are pending at this time. Plan of care was discussed with the patient in detail. He stated understanding. Fall precaution with 24-hour supervision will be helpful. DISCHARGE MEDICATIONS: Protonix 40 mg twice a day for at least 2 months, then once a day. All other home medications were resumed. FINAL DIAGNOSES: 1. Gastrointestinal bleeding secondary to peptic ulcer disease. 2. Anemia secondary to acute gastrointestinal blood loss. 3. Diabetes mellitus, type 2. 4. Chronic kidney disease, stage 2. 5. Acute kidney injury with a maximum creatinine of 1.47 on admission. Creatinine on 11/21/2017 was 0.98. 6. Mild hyponatremia with sodium of 135. 7. Hypomagnesemia, corrected. 8. History of Hodgkin's lymphoma in the past. 9. PENICILLIN allergy. 10. History of heavy alcohol abuse in the past. 11. Hypothyroidism. 12. Deconditioning.
== END 2017-11-24 14:26 | disposition home or self-care (01) | DRG 378 ==
LOC: ERS 15:29 → 2NO 18:18 → OBSVTOIN 11-20 07:04 → T4-B 11-21 12:13
PROVIDERS: ADMIT Internal Medicine; ATTEND Internal Medicine
PROC: 0DB28ZX Excision of Middle Esophagus, Via Natural or Artificial Opening Endoscopic, Diagnostic (ICD-10-PCS; principal; 2017-11-22)
PROC: 0DB68ZX Excision of Stomach, Via Natural or Artificial Opening Endoscopic, Diagnostic (ICD-10-PCS; 2017-11-22)
DX: K25.4 Chronic or unspecified gastric ulcer with hemorrhage (principal); K22.10 Ulcer of esophagus without bleeding; D62 Acute posthemorrhagic anemia; N17.9 Acute kidney failure, unspecified; E87.1 Hypo-osmolality and hyponatremia; K44.9 Diaphragmatic hernia without obstruction or gangrene; K26.9 Duodenal ulcer, unspecified as acute or chronic, without hemorrhage or perforation; K29.80 Duodenitis without bleeding; G30.9 Alzheimer's disease, unspecified; F02.80 Dementia in other diseases classified elsewhere, unspecified severity, without behavioral disturbance, psychotic disturbance, mood disturbance, and anxiety; E83.42 Hypomagnesemia; Z85.71 Personal history of Hodgkin lymphoma; F10.11 Alcohol abuse, in remission; Z87.891 Personal history of nicotine dependence; E11.9 Type 2 diabetes mellitus without complications; E03.9 Hypothyroidism, unspecified; R53.81 Other malaise
CPT/HCPCS: 36415; 36416; 36430; 80048; 81003; 82728; 83540; 83550; 83735; 85014; 85018; 85025; 85049; 85610; 85730; 86850; 86900; 86901; 88305; 88312; 88313; 88342; 96365; 96366; 96376; A4216; C9113; G8978-GP-CK; G8979-GP-CK; G8980-GP-CK; J2001; J2704; J3475; J3480; J7050; P9016